=== PATIENT | female | born 1975 | race Caucasian/White ===

== ENCOUNTER 2019-01-18 19:40 | Emergency (ER) | payer SELFPAY ==
[~2019-01-18] VITALS: Ht 157.5 cm; Wt 56.7 kg
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
--- OUTSIDE RECORDS SUMMARY | 2019-01-18 19:42 | XMS REPORT | Clinical Summary ---
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 Active amoxicillin-clavulanate Take 1 tablet 0 (AUGMENTIN) 875-125 mg by mouth 2 per tablet (two) times daily. Active HYDROcodone-acetaminophen Take 1 tablet 0 (NORCO 5-325) 5-325 mg by mouth per tablet every 6 (six) hours as needed for Pain. Active Problems Problem Noted Date Ureteral stone 02/16/2015 Social History Date Tobacco Use Types Packs/Day Years Used Current Every Day Smoker 0.5 21 Smokeless Tobacco: Never Used Tobacco Cessation: Ready to Quit: No; Counseling Given: Yes Alcohol Use Drinks/Week oz/Week Comments Yes 1 Cans of 0.6 occasionally beer Sex Assigned at Date Recorded Not on file Industry Job Start Date Occupation Not on file Not on file Not on file Travel End Travel History Travel Start No recent travel history available. 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
[2019-01-18] MEDS ORDERED: SODIUM CHLORIDE 0.9% 1000ML 1,000 ML IV STA (20:29)
[2019-01-18] MEDS ORDERED: MORPHINE SULFATE INJ 4 MG/ML INJ 1ML IV STA (20:29)
[2019-01-18] MEDS ORDERED: ONDANSETRON HCL INJ 2MG/ML 2ML 2 MG/ML VIAL IV STA (20:29)
[2019-01-18 20:58] LABS: ALANINE AMINOTRANSFERASE 118 IU/L (0-55); ALBUMIN 3.4 g/dL (3.5-5.0); ALKALINE PHOSPHATASE 128 IU/L (40-150); ANION GAP 12.9 mmol/L (8-16); BLOOD UREA NITROGEN 18 mg/dL (7-26); BUN/CREATININE RATIO 20 (6-25); CALCIUM 9.7 mg/dL (8.4-10.2); CARBON DIOXIDE 22 mmol/L (22-29); CHLORIDE 106 mmol/L (98-107); CREATININE, SERUM 0.92 mg/dL (0.57-1.11); EST GLOMERULAR FILTRATION RATE > 60 ML/MIN (60-); GLUCOSE 105 mg/dL (74-118); MAGNESIUM 1.8 MG/DL (1.3-2.1); POTASSIUM 3.9 mmol/L (3.5-5.1); SODIUM 137 mmol/L (136-145)
[2019-01-18 21:03] LABS: BASOPHILS % 0.4 % (0.0-1.0); EOSINOPHILS # (AUTO) 0.3 (0.0-0.4); EOSINOPHILS % 4.3 % (0.0-6.0); HEMATOCRIT 41.8 % (34.2-44.1); HEMOGLOBIN 13.9 g/dL (12.0-16.0); LYMPHOCYTES # (AUTO) 1.9 (1.0-3.2); LYMPHOCYTES % 26.2 % (18.0-39.1); MEAN CORPUSCULAR HEMOGLOBIN 29.1 pg (28-32); MEAN CORPUSCULAR HGB CONC 33.3 g/dL (31-35); MEAN CORPUSCULAR VOLUME 87.6 fL (81-99); MONOCYTES # (AUTO) 0.5 (0.2-0.8); MONOCYTES % 6.6 % (4.4-11.3); NEUTROPHILS # (AUTO) 4.5 (2.1-6.9); NEUTROPHILS % 61.9 % (38.7-80.0); PLATELET COUNT 243 x10e3/uL (140-360); RED BLOOD COUNT 4.77 x10e6/uL (3.6-5.1); RED CELL DISTRIBUTION WIDTH 13.4 % (11.7-14.4)
--- NOTE | 2019-01-18 21:24 | Diagnostic Imaging Report ---
EXAMINATION: CT of the abdomen and pelvis without contrast. TECHNIQUE: Spiral CT images of the abdomen and pelvis were performed from the lung bases to the lesser trochanters. No intravenous contrast was given per renal stone protocol. Coronal and sagittal reformatted images were obtained. COMPARISON: None. CLINICAL HISTORY:Left flank pain for 3 days, history of kidney infection and stones DISCUSSION: ABSENCE OF INTRAVENOUS CONTRAST DECREASES SENSITIVITY FOR DETECTION OF FOCAL LESIONS AND VASCULAR PATHOLOGY. ABDOMEN/PELVIS: LOWER THORAX: Unremarkable. HEPATOBILIARY: No focal hepatic lesions. No intra or extrahepatic biliary ductal dilation. GALLBLADDER: No radio-opaque stones or sludge. No wall thickening. SPLEEN: No splenomegaly. PANCREAS: No focal masses or ductal dilatation. ADRENALS: No adrenal nodules. KIDNEYS/URETERS: No renal or ureteral calculi, hydronephrosis or obstruction. Left renal cortical scarring. No other contour abnormalities or significant perinephric stranding. PELVIC ORGANS/BLADDER: Bladder is unremarkable, without wall thickening, focal lesions or calculi. Uterus is unremarkable. Bilateral tubal ligation clips. PERITONEUM/RETROPERITONEUM: No free air or fluid. LYMPH NODES: No intra-abdominal,retroperitoneal, pelvic or inguinal lymphadenopathy. VESSELS: Unremarkable for noncontrast exam. GI TRACT: No bowel dilation or evidence of obstruction. Appendix is well identified in caliber. No pericolonic inflammatory changes. BONES AND SOFT TISSUES: No aggressive lytic lesions. Soft tissues are unremarkable. IMPRESSION: 1. No renal, ureteral calculi, hydronephrosis or obstruction. 2. Essentially unremarkable noncontrast CT of the abdomen and pelvis. Signed by: Dr. Cipriano Christian M.D. on 01/18/2019 9:21 PM
[2019-01-18] MEDS ORDERED: KETOROLAC TROMETHAMINE 30 MG/ML VIAL IV STA (21:38)
[2019-01-18 22:06] LABS: BILIRUBIN,URINE NEGATIVE (NEGATIVE); CLARITY,URINE SL CLOUDY (CLEAR); COLOR,URINE YELLOW (YELLOW); KETONES,URINE NEGATIVE (NEGATIVE); LEUKOCYTE ESTERASE ,URINE NEGATIVE (NEGATIVE); NITRITE,URINE POSITIVE (NEGATIVE); PROTEIN,URINE DIPSTICK NEGATIVE (NEGATIVE); URINE UROBILINOGEN 0.2 mg/dL (0.2 - 1)
[2019-01-18] MEDS ORDERED: CEFTRIAXONE SOD 1 GM/NS 50 ML 50 ML IV ONE ×2 (22:15→22:43)
[2019-01-18 22:28] LABS: BACTERIA,URINE MANY /HPF; EPITHELIAL CELLS,URINE FEW /LPF; WBC,URINE (MAN) 21-50 /HPF (0-5)
[2019-01-18 23:03] VITALS: BP 109/63
== END 2019-01-18 23:38 | disposition home or self-care (01) ==
LOC: ER 19:40
DX: R10.9 Unspecified abdominal pain (principal); N30.91 Cystitis, unspecified with hematuria; R11.0 Nausea; Z86.718 Personal history of other venous thrombosis and embolism
CPT/HCPCS: 36415; 74176; 80053; 81001; 83735; 85025; 87086; 87186; 96374; 99284; J0696; J2270; J2405; J7030